=== PATIENT | male | born 1970 | race Caucasian/White ===

== ENCOUNTER → 2016-08-01 | Outpatient (CLI) | payer SELFPAY ==
--- NOTE | 2016-08-01 15:42 | CT ---
HISTORY: Screening. Study: Cardiac calcium scoring. Technique: Multiple axial images of the chest were obtained on a [address] from the main pulmonary artery to the base of the heart. Noncontrast evaluation of the heart was performed for calcium scoring with prospective gating. Findings: A total calcium score of 253 is observed which is between the 90th and 100th percentile fo r males between the ages of 45 and 49. This score implies definite, at least moderate atherosclerot ic plaque with mild coronary artery disease highly likely and significant narrowings possible. LM: 42 LAD: 64 LCX: 7 RCA: 140 Extracardiac findings: No pathologically enlarged lymphadenopathy can be observed. No significant pericardial effusion can be identified. The visualized portions of the lung parenchyma are unremarkable. No lytic or blast ic lesions can be identified within the visualized bony thorax. IMPRESSION: A total calcium score of 253 is observed which is between the 90th and 100th percentile for males be tween the ages of 45 and 49. This score implies definite, at least moderate atherosclerotic plaque with mild coronary artery disease highly likely and significant narrowings possible. Reported By:
== END ==
LOC: RAD 14:16
PROVIDERS: ATTEND Internal Medicine
DX: Z13.6 Encounter for screening for cardiovascular disorders (principal)

== ENCOUNTER → 2016-10-16 | Outpatient (CLI) | payer BC ==
[2016-10-16 09:58] LABS: BASOPHILS % (AUTO) 0.4 % (0.2-1.0); EOSINOPHILS # (AUTO) 0.1 x10^3/uL (0.0-0.2); EOSINOPHILS % (AUTO) 1.8 % (0.9-2.9); HEMATOCRIT 44.8 % (42.0-54.0); HEMOGLOBIN 15.7 g/dL (13.5-18.0); LYMPHOCYTES # (AUTO) 2.7 X10^3/uL (1.3-2.9); LYMPHOCYTES % (AUTO) 36.6 % (21.0-51.0); MEAN CORPUSCULAR HGB CONC 35.1 g/dL (33.0-35.0); MEAN CORPUSCULAR VOLUME 85.5 fL (80.0-100.0); MEAN PLATELET VOLUME 6.6 fL (7.4-11.0); MONOCYTES # (AUTO) 0.6 x10^3/uL (0.3-0.8); MONOCYTES % (AUTO) 8.5 % (0.0-13.0); NEUTROPHILS # (AUTO) 3.8 x10^3/uL (2.2-4.8); NEUTROPHILS % (AUTO) 52.7 % (42.0-75.0); PLATELET COUNT 223 X10^3/uL (150.0-450.0); RED BLOOD COUNT 5.24 X10^6/uL (4.7-6.0); RED CELL DISTRIBUTION WIDTH 13.3 % (11.6-16.5); WHITE BLOOD COUNT 7.3 X10^3/uL (3.6-10.0)
[2016-10-16 10:12] LABS: ALANINE AMINOTRANSFERASE 45 Units/L (12-78); ALBUMIN 3.8 g/dL (3.4-5.0); ALKALINE PHOSPHATASE 63 Units/L (46-116); ASPARTATE AMINO TRANSFERASE 27 Units/L (15-37); BLOOD UREA NITROGEN 12 mg/dL (7-18); CALCIUM 8.5 mg/dL (8.5-10.1); CARBON DIOXIDE 30.9 mmol/L (21-32); CHLORIDE 105 mmol/L (98-107); CHOL/HDL RATIO 4.9 (0.0-5.0); CHOLESTEROL 181 mg/dL (0-200); CREATININE 0.86 mg/dL (0.70-1.30); GLUCOSE 105 mg/dL (65-99); HDL CHOLESTEROL 37 mg/dL (40-60); SODIUM 142 mmol/L (136-145); TOTAL PROTEIN 7.8 g/dL (6.4-8.2); TRIGLYCERIDES 105 mg/dL (0-150); eGFR BLACK RACES > 60 (>60); eGFR NON BLACK RACES > 60 (>60)
== END ==
LOC: LAB 09:36
PROVIDERS: ATTEND Internal Medicine Rheumatology
DX: Z79.899 Other long term (current) drug therapy (principal)
CPT/HCPCS: 36415; 80053; 80061; 85025

== ENCOUNTER → 2016-10-24 | Outpatient (CLI) | payer BC ==
--- NOTE | 2016-10-24 14:42 | VAS ---
History: Carotid stenosis Study: Bilateral carotid Doppler Findings: High-resolution linear ray ultrasound and color Doppler evaluation of the carotids is perf ormed bilaterally only the proximal common carotid artery is well seen with velocities below 40 cm/s ec. The internal carotid arteries appear patent with maximal velocities of 80 on the right and 70 on the left. There is no significant plaque. Vertebral arteries could not be visualized due to the pat ient's body habitus. Impression: No appearance carotid stenosis. Reported By:
== END ==
LOC: RAD 13:35
PROVIDERS: ATTEND Internal Medicine Rheumatology
DX: R09.89 Other specified symptoms and signs involving the circulatory and respiratory systems (principal)
CPT/HCPCS: 93880